=== PATIENT | female | born 1970 | race Caucasian/White ===

== ENCOUNTER 2018-01-23 10:28 | Inpatient (IN) | payer MEDICAID ==
[~2018-01-23] VITALS: Ht 157.5 cm; Wt 85.2 kg
[2018-01-23 11:35] LABS: BASOPHILS % (AUTO) 0.3 % (0-1); EOSINOPHILS # (AUTO) 0.1 X10'3 (0-0.9); EOSINOPHILS % (AUTO) 0.8 % (0-6); HEMATOCRIT 41.3 % (35.0-45.0); HEMOGLOBIN 14.1 g/dl (12.0-16.0); LYMPHOCYTES # (AUTO) 0.8 X10'3 (1.1-4.8); LYMPHOCYTES % (AUTO) 8.7 % (21-51); MEAN CORPUSCULAR HEMOGLOBIN 31.8 PG (27.0-31.0); MEAN CORPUSCULAR HGB CONC 34.2 % (33.0-36.5); MEAN PLATELET VOLUME 8.1 FL (7.4-10.4); MONOCYTES # (AUTO) 0.8 X10'3 (0-0.9); MONOCYTES % (AUTO) 8.1 % (2-12); NEUTROPHILS # (AUTO) 7.8 X10'3 (1.8-7.7); NEUTROPHILS % (AUTO) 82.1 % (42-75); PLATELET COUNT 347 X10'3 (140-440); RED BLOOD COUNT 4.44 X10'6 (4.20-5.60); RED CELL DISTRIBUTION WIDTH 13.9 % (11.5-14.5); WHITE BLOOD COUNT 9.4 X10'3 (4.5-11.0)
[2018-01-23 11:40] LABS: PARTIAL THROMBOPLASTIN TIME 24 SECONDS (22-32); PROTHROMBIN TIME 9.9 SECONDS (9.0-12.0)
[2018-01-23 11:48] LABS: ALANINE AMINOTRANSFERASE 247 U/L (12-78); ALBUMIN 3.3 G/DL (3.4-5.0); ALBUMIN/GLOBULIN RATIO 0.9 (1.1-1.5); ALKALINE PHOSPHATASE 153 IU/L (46-116); ANION GAP 11 (8-16); ASPARTATE AMINO TRANSFERASE 127 U/L (10-37); BILIRUBIN,TOTAL 1.1 MG/DL (0.1-1.0); BLOOD UREA NITROGEN 10 MG/DL (7-18); BUN/CREATININE RATIO 16.4 (6.6-38.0); CALCIUM 8.5 MG/DL (8.5-10.1); CHLORIDE 102 MMOL/L (99-107); CREATININE 0.61 MG/DL (0.40-0.90); GLUCOSE 113 MG/DL (70-104); POTASSIUM 3.9 MMOL/L (3.5-5.1); SODIUM 138 MMOL/L (135-145); TOTAL CARBON DIOXIDE 25.1 MMOL/L (24-32); TOTAL PROTEIN 6.8 G/DL (6.4-8.2); eGFR > 90 ML/MIN
[2018-01-23] MEDS ORDERED: potassium Cl 20 mEq SR tablet PO STA (12:02)
[2018-01-23] MEDS ORDERED: furosemide 10 MG/1 ML 10ml inj IV ONE (12:05)
[2018-01-23] MEDS ORDERED: iohexol 350MG/ML 100ml bottle IV ONE (12:17)
[2018-01-23] MEDS ORDERED: magnesium Cl slow-release 64mg tablet PO PRN (12:45)
[2018-01-23] MEDS ORDERED: potassium Cl 20 mEq SR tablet PO PRN ×2 (12:45)
[2018-01-23] MEDS ORDERED: bisacodyl 10mg suppository rectal RC PRN (12:45)
[2018-01-23] MEDS ORDERED: potassium Cl 40MEQ/NS 500ml 500 ML IV PRN ×2 (12:45)
[2018-01-23] MEDS ORDERED: magnesium 4gm in 100ml NS 100 ML IV PRN (12:45)
[2018-01-23] MEDS ORDERED: magnesium 2GM in 50ml NS 50 ML IV PRN (12:45)
[2018-01-23] MEDS ORDERED: HYDROcodone/acetaminophen 5mg/325mg tablet PO PRN (12:45)
[2018-01-23] MEDS ORDERED: morphine 2 MG/ML inj. syringe IV PRN ×2 (12:45)
[2018-01-23] MEDS ORDERED: mag hydrox/Alum hydrox/simeth 30ml oral suspension PO PRN (12:45)
[2018-01-23] MEDS ORDERED: ondansetron/PF 4mg/2ml inj IV PRN (12:45)
[2018-01-23] MEDS ORDERED: acetaminophen 325mg tablet PO PRN (12:45)
[2018-01-23] MEDS ORDERED: magnesium hydroxide 30ml (MOM) UD suspension PO PRN (12:45)
[2018-01-23 12:47] LABS: ETHANOL < 0.010 GM/DL (0.0-0.010)
[2018-01-23] MEDS ORDERED: metoprolol tartrate 25mg tablet PO SCH (12:50)
[2018-01-23] MEDS ORDERED: LORazepam 2 mg/ml vial IV PRN ×2 (12:50→13:10)
[2018-01-23] MEDS ORDERED: LORazepam 1 MG tablet PO PRN (13:10)
[2018-01-23] MEDS ORDERED: NO HOME MEDS (13:15)
[2018-01-23] MEDS: pantoprazole 40mg Tablet.DR PO SCH (13:44)
[2018-01-23 13:51] LABS: URINE AMPHETAMINE SCREEN NEGATIVE (Neg); URINE BARBITUATE SCREEN NEGATIVE (Neg); URINE BENZODIAZEPINES SCREEN NEGATIVE (Neg); URINE CANNABINOID SCREEN POSITIVE (Neg); URINE COCAINE SCREEN NEGATIVE (Neg); URINE METHADONE SCREEN NEGATIVE (Neg); URINE OPIATE SCREEN NEGATIVE (Neg); URINE PHENCYCLIDINE SCREEN NEGATIVE (Neg)
[2018-01-23 15:00] VITALS: BP 135/99
[2018-01-23] MEDS ORDERED: metoprolol tartrate 25mg tablet PO STA (16:08)
[2018-01-23 19:00] VITALS: BP 145/99
[2018-01-23] MEDS: metoprolol tartrate 50mg tablet PO SCH (19:38)
[2018-01-23] MEDS: furosemide 20 MG/2 ML vial IV SCH (19:38)
[2018-01-23] MEDS: HYDROcodone/acetaminophen 10/325mg tab PO PRN (19:38)
[2018-01-23] MEDS: docusate sod 100mg capsule PO SCH (19:39)
[2018-01-23 23:00] VITALS: BP 134/83
[2018-01-24 03:00] VITALS: BP 125/80
[2018-01-24 05:39] LABS: BASOPHILS % (AUTO) 0.3 % (0-1); EOSINOPHILS # (AUTO) 0.2 X10'3 (0-0.9); EOSINOPHILS % (AUTO) 1.7 % (0-6); HEMATOCRIT 41.2 % (35.0-45.0); HEMOGLOBIN 14.1 g/dl (12.0-16.0); LYMPHOCYTES % (AUTO) 9.5 % (21-51); MEAN CORPUSCULAR HEMOGLOBIN 31.7 PG (27.0-31.0); MEAN CORPUSCULAR HGB CONC 34.1 % (33.0-36.5); MEAN CORPUSCULAR VOLUME 93.1 FL (78-98); MEAN PLATELET VOLUME 8.6 FL (7.4-10.4); MONOCYTES # (AUTO) 0.8 X10'3 (0-0.9); MONOCYTES % (AUTO) 7.3 % (2-12); NEUTROPHILS # (AUTO) 8.6 X10'3 (1.8-7.7); NEUTROPHILS % (AUTO) 81.2 % (42-75); PLATELET COUNT 320 X10'3 (140-440); RED BLOOD COUNT 4.43 X10'6 (4.20-5.60); RED CELL DISTRIBUTION WIDTH 13.2 % (11.5-14.5); WHITE BLOOD COUNT 10.6 X10'3 (4.5-11.0)
[2018-01-24 05:54] LABS: ALANINE AMINOTRANSFERASE 209 U/L (12-78); ALBUMIN 3.1 G/DL (3.4-5.0); ALBUMIN/GLOBULIN RATIO 0.9 (1.1-1.5); ALKALINE PHOSPHATASE 149 IU/L (46-116); ANION GAP 6 (8-16); ASPARTATE AMINO TRANSFERASE 92 U/L (10-37); BILIRUBIN,TOTAL 1.3 MG/DL (0.1-1.0); BLOOD UREA NITROGEN 9 MG/DL (7-18); CALCIUM 8.6 MG/DL (8.5-10.1); CHLORIDE 101 MMOL/L (99-107); CHOL/HDL RATIO 1.8 (0.00-4.99); CHOLESTEROL 198 MG/DL (0-200); CREATININE 0.69 MG/DL (0.40-0.90); GLUCOSE 104 MG/DL (70-104); HDL CHOLESTEROL 109 MG/DL (35-60); LDL CHOLESTEROL 88 MG/DL (50-100); LIPASE 78 U/L (73-393); MAGNESIUM 1.6 MG/DL (1.5-2.4); PHOSPHORUS 3.3 MG/DL (2.3-4.5); SODIUM 138 MMOL/L (135-145); TOTAL CARBON DIOXIDE 30.9 MMOL/L (24-32); TOTAL PROTEIN 6.7 G/DL (6.4-8.2); TRIGLYCERIDES 79 MG/DL (20-135); eGFR > 90 ML/MIN
[2018-01-24 06:52] VITALS: BP 143/86
[2018-01-24] MEDS ORDERED: folic acid inj. 2 MG, thiamine inj. 100 MG, MVI, adult No.4 with vit. K 10 ML in dextro... IV SCH ×4 (08:00)
[2018-01-24] MEDS: K and/or MAG REPLACEMENT MC SCH (08:00)
[2018-01-24] MEDS: metoprolol tartrate 50mg tablet PO SCH ×2 (09:09→20:06)
[2018-01-24] MEDS: pantoprazole 40mg Tablet.DR PO SCH (09:09)
[2018-01-24] MEDS: docusate sod 100mg capsule PO SCH ×2 (09:09→20:06)
[2018-01-24] MEDS: furosemide 20 MG/2 ML vial IV SCH ×2 (09:09→20:06)
[2018-01-24] MEDS: enoxaparin 40mg/0.4ml syringe SUBCUT SCH (09:11)
[2018-01-24 11:00] VITALS: BP 126/71
[2018-01-24 15:00] VITALS: BP 106/76
[2018-01-24] MEDS ORDERED: CAFFEINE CITRATE 60 MG/3 ML injection vial IV PRN (15:40)
[2018-01-24] MEDS ORDERED: metoprolol tartrate 1mg/ml inj IV PRN (15:40)
[2018-01-24] MEDS ORDERED: nitroGLYCERIN 0.4mg SUBLingual tab SL PRN (15:40)
[2018-01-24] MEDS ORDERED: albuterol 2.5 MG/3 ML nebule NEB PRN (15:40)
[2018-01-24] MEDS ORDERED: regadenoson 0.4mg/5ml syringe IV PRN (15:40)
[2018-01-24] MEDS: HYDROcodone/acetaminophen 10/325mg tab PO PRN (17:23)
[2018-01-24] MEDS: levoFLOXACIN-Levaquin 500mg/D5 100 ML IV SCH (17:24)
[2018-01-24 19:00] VITALS: BP 126/87
[2018-01-24 23:00] VITALS: BP 101/48
[2018-01-25] VITALS (15 sets, daily range): BP systolic 117–138; BP diastolic 69–89
[2018-01-25 06:11] LABS: ALANINE AMINOTRANSFERASE 153 U/L (12-78); ALBUMIN 2.6 G/DL (3.4-5.0); ALBUMIN/GLOBULIN RATIO 0.7 (1.1-1.5); ALKALINE PHOSPHATASE 129 IU/L (46-116); ANION GAP 10 (8-16); ASPARTATE AMINO TRANSFERASE 51 U/L (10-37); BILIRUBIN,TOTAL 0.7 MG/DL (0.1-1.0); BLOOD UREA NITROGEN 12 MG/DL (7-18); BUN/CREATININE RATIO 16.2 (6.6-38.0); CALCIUM 8.2 MG/DL (8.5-10.1); CHLORIDE 100 MMOL/L (99-107); CREATININE 0.74 MG/DL (0.40-0.90); GLUCOSE 97 MG/DL (70-104); MAGNESIUM 1.6 MG/DL (1.5-2.4); PHOSPHORUS 3.9 MG/DL (2.3-4.5); POTASSIUM 3.3 MMOL/L (3.5-5.1); SODIUM 139 MMOL/L (135-145); TOTAL CARBON DIOXIDE 29.5 MMOL/L (24-32); TOTAL PROTEIN 6.4 G/DL (6.4-8.2); eGFR 84 ML/MIN
[2018-01-25] MEDS: K and/or MAG REPLACEMENT MC SCH (06:57)
[2018-01-25] MEDS: levoFLOXACIN-Levaquin 500mg/D5 100 ML IV SCH (07:17)
[2018-01-25] MEDS: furosemide 20 MG/2 ML vial IV SCH (07:17)
[2018-01-25] MEDS: pantoprazole 40mg Tablet.DR PO SCH (07:17)
[2018-01-25] MEDS: enoxaparin 40mg/0.4ml syringe SUBCUT SCH (07:18)
[2018-01-25] MEDS: docusate sod 100mg capsule PO SCH (07:18)
[2018-01-25] MEDS: metoprolol tartrate 50mg tablet PO SCH (07:18)
[2018-01-25] MEDS ORDERED: multivitamins, therapeutics tablet PO SCH (08:00)
[2018-01-25] MEDS ORDERED: folic acid 1mg tablet PO SCH (08:00)
[2018-01-25] MEDS ORDERED: thiamine 100mg tablet PO SCH (08:00)
[2018-01-25] MEDS ORDERED: regadenoson 0.4mg/5ml syringe IV ONE (09:54)
[2018-01-25] MEDS ORDERED: CAFFEINE CITRATE 60 MG/3 ML injection vial IV ONE (09:54)
[2018-01-25] MEDS ORDERED: LEVO500T2 PO (13:29)
[2018-01-25] MEDS ORDERED: FOLI1TAB16 PO (13:29)
[2018-01-25] MEDS ORDERED: NITR0.4T51 SL (13:29)
[2018-01-25] MEDS ORDERED: METO50TA16 PO (13:29)
[2018-01-25] MEDS ORDERED: FURO-150 PO (13:29)
[2018-01-25] MEDS ORDERED: POTA20TA19 PO (13:29)
[2018-01-25] MEDS ORDERED: THI100T PO (13:29)
[2018-01-25] MEDS ORDERED: LISI2.5T2 PO (13:35)
[2018-01-25] MEDS ORDERED: ASPI81TA52 PO (13:42)
[2018-01-26] MEDS ORDERED: levoFLOXACIN 250mg tablet PO SCH (11:00)
== END 2018-01-25 16:55 | disposition home or self-care (01) | DRG 199 ==
LOC: ER 10:29 → ED HOLD 12:42 → PCU 3S 15:24
PROVIDERS: ADMIT Internal Medicine; ATTEND Internal Medicine
PROC: B3201ZZ Computerized Tomography (CT Scan) of Thoracic Aorta using Low Osmolar Contrast (ICD-10-PCS; principal; 2018-01-23)
PROC: 4A02XM4 Measurement of Cardiac Total Activity, External Approach (ICD-10-PCS; 2018-01-25)
PROC: 3E033HZ Introduction of Radioactive Substance into Peripheral Vein, Percutaneous Approach (ICD-10-PCS; 2018-01-25)
DX: I16.0 Hypertensive urgency (principal); I50.21 Acute systolic (congestive) heart failure; E27.8 Other specified disorders of adrenal gland; I42.6 Alcoholic cardiomyopathy; K29.20 Alcoholic gastritis without bleeding; I11.0 Hypertensive heart disease with heart failure; F10.20 Alcohol dependence, uncomplicated; F12.90 Cannabis use, unspecified, uncomplicated; R59.9 Enlarged lymph nodes, unspecified; J20.9 Acute bronchitis, unspecified; F41.0 Panic disorder [episodic paroxysmal anxiety]; J45.909 Unspecified asthma, uncomplicated; I34.0 Nonrheumatic mitral (valve) insufficiency; E87.6 Hypokalemia; T50.1X5A Adverse effect of loop [high-ceiling] diuretics, initial encounter; Z90.49 Acquired absence of other specified parts of digestive tract; Z88.8 Allergy status to other drugs, medicaments and biological substances; Z79.899 Other long term (current) drug therapy; Z87.891 Personal history of nicotine dependence; Y92.238 Other place in hospital as the place of occurrence of the external cause; Z71.41 Alcohol abuse counseling and surveillance of alcoholic
CPT/HCPCS: 36415; 71045; 71275; 78452; 80053; 80061; 80305; 80320; 82948; 83690; 83735; 83880; 84100; 84439; 84443; 84484; 85025; 85610; 85730; 87070; 93005; 93017; 93306; 99285; A9500; J1650; J1940; J1956; J2270; J3411; J3490; J7030; J7060; Q9967

== ENCOUNTER 2018-03-21 07:39 | Emergency (ER) | payer MEDICAID ==
[~2018-03-21] VITALS: Ht 157.5 cm; Wt 88.3 kg
[~2018-03-21 07:39] MED LIST: FOLI1TAB16 PO; LISI2.5T2 PO; METO50TA16 PO; NITR0.4T51 SL; THI100T PO
[2018-03-21 07:43] VITALS: BP 125/75
[2018-03-21] MEDS ORDERED: ipratropium/albuterol 3ml nebule NEB ONE (07:55)
[2018-03-21 08:16] LABS: BASOPHILS % (AUTO) 0.8 % (0-1); EOSINOPHILS # (AUTO) 0.1 X10'3 (0-0.9); EOSINOPHILS % (AUTO) 1.3 % (0-6); HEMATOCRIT 43.6 % (35.0-45.0); HEMOGLOBIN 14.7 g/dl (12.0-16.0); LYMPHOCYTES # (AUTO) 2.3 X10'3 (1.1-4.8); LYMPHOCYTES % (AUTO) 40.2 % (21-51); MEAN CORPUSCULAR HEMOGLOBIN 30.9 PG (27.0-31.0); MEAN CORPUSCULAR HGB CONC 33.7 % (33.0-36.5); MEAN CORPUSCULAR VOLUME 91.6 FL (78-98); MEAN PLATELET VOLUME 7.8 FL (7.4-10.4); MONOCYTES # (AUTO) 0.4 X10'3 (0-0.9); MONOCYTES % (AUTO) 7.6 % (2-12); NEUTROPHILS # (AUTO) 2.9 X10'3 (1.8-7.7); NEUTROPHILS % (AUTO) 50.1 % (42-75); PLATELET COUNT 400 X10'3 (140-440); RED BLOOD COUNT 4.76 X10'6 (4.20-5.60); RED CELL DISTRIBUTION WIDTH 13.3 % (11.5-14.5); WHITE BLOOD COUNT 5.8 X10'3 (4.5-11.0)
[2018-03-21 08:27] LABS: ALANINE AMINOTRANSFERASE 35 U/L (12-78); ALBUMIN 3.6 G/DL (3.4-5.0); ALBUMIN/GLOBULIN RATIO 0.9 (1.1-1.5); ALKALINE PHOSPHATASE 76 IU/L (46-116); ANION GAP 6 (8-16); ASPARTATE AMINO TRANSFERASE 30 U/L (10-37); BILIRUBIN,TOTAL 0.3 MG/DL (0.1-1.0); BLOOD UREA NITROGEN 14 MG/DL (7-18); BUN/CREATININE RATIO 21.2 (6.6-38.0); CALCIUM 8.8 MG/DL (8.5-10.1); CHLORIDE 105 MMOL/L (99-107); CREATININE 0.66 MG/DL (0.40-0.90); GLUCOSE 98 MG/DL (70-104); POTASSIUM 4.2 MMOL/L (3.5-5.1); SODIUM 143 MMOL/L (135-145); TOTAL CARBON DIOXIDE 32.4 MMOL/L (24-32); TOTAL PROTEIN 7.5 G/DL (6.4-8.2); eGFR > 90 ML/MIN
[2018-03-21] MEDS ORDERED: predniSONE 20 mg tablet PO ONE (08:45)
[2018-03-21] MEDS ORDERED: PRED20TA PO (08:52)
[2018-03-21] MEDS ORDERED: ALBU18HF2 INH (08:52)
== END 2018-03-21 09:27 | disposition home or self-care (01) ==
LOC: ER 07:40
DX: J20.9 Acute bronchitis, unspecified (principal); I50.9 Heart failure, unspecified; F12.90 Cannabis use, unspecified, uncomplicated; Z90.49 Acquired absence of other specified parts of digestive tract; Z98.890 Other specified postprocedural states; Z88.8 Allergy status to other drugs, medicaments and biological substances; Z79.899 Other long term (current) drug therapy; Z87.81 Personal history of (healed) traumatic fracture
CPT/HCPCS: 36415; 71046; 80053; 83880; 85025; 93005; 94640; 94760; 99284; J7512

== ENCOUNTER 2018-05-05 10:28 | Emergency (ER) | payer MEDICAID ==
[~2018-05-05] VITALS: Ht 157.5 cm; Wt 87.3 kg
[~2018-05-05 10:28] MED LIST changes: +ALBU18HF2 INH
[2018-05-05 11:05] LABS: BASOPHILS % (AUTO) 0.6 % (0-1); EOSINOPHILS # (AUTO) 0.1 X10'3 (0-0.9); EOSINOPHILS % (AUTO) 0.7 % (0-6); HEMATOCRIT 46.7 % (35.0-45.0); HEMOGLOBIN 15.2 g/dl (12.0-16.0); LYMPHOCYTES # (AUTO) 1.5 X10'3 (1.1-4.8); LYMPHOCYTES % (AUTO) 19.3 % (21-51); MEAN CORPUSCULAR HEMOGLOBIN 30.3 PG (27.0-31.0); MEAN CORPUSCULAR HGB CONC 32.6 % (33.0-36.5); MEAN CORPUSCULAR VOLUME 92.8 FL (78-98); MEAN PLATELET VOLUME 7.9 FL (7.4-10.4); MONOCYTES # (AUTO) 0.6 X10'3 (0-0.9); MONOCYTES % (AUTO) 8.2 % (2-12); NEUTROPHILS # (AUTO) 5.7 X10'3 (1.8-7.7); NEUTROPHILS % (AUTO) 71.2 % (42-75); PLATELET COUNT 429 X10'3 (140-440); RED BLOOD COUNT 5.03 X10'6 (4.20-5.60); RED CELL DISTRIBUTION WIDTH 13.3 % (11.5-14.5); WHITE BLOOD COUNT 7.9 X10'3 (4.5-11.0)
[2018-05-05] MEDS ORDERED: predniSONE 20 mg tablet PO ONE (11:10)
[2018-05-05] MEDS ORDERED: ipratropium/albuterol 3ml nebule NEB ONE (11:10)
[2018-05-05 11:23] LABS: ALANINE AMINOTRANSFERASE 38 U/L (12-78); ALBUMIN 3.6 G/DL (3.4-5.0); ALBUMIN/GLOBULIN RATIO 0.9 (1.1-1.5); ALKALINE PHOSPHATASE 83 IU/L (46-116); ANION GAP 10 (8-16); ASPARTATE AMINO TRANSFERASE 32 U/L (10-37); BILIRUBIN,TOTAL 0.3 MG/DL (0.1-1.0); BLOOD UREA NITROGEN 13 MG/DL (7-18); BUN/CREATININE RATIO 17.1 (6.6-38.0); CALCIUM 8.6 MG/DL (8.5-10.1); CHLORIDE 105 MMOL/L (99-107); CREATININE 0.76 MG/DL (0.40-0.90); GLUCOSE 124 MG/DL (70-104); SODIUM 145 MMOL/L (135-145); TOTAL CARBON DIOXIDE 29.8 MMOL/L (24-32); TOTAL PROTEIN 7.7 G/DL (6.4-8.2); eGFR 81 ML/MIN
[2018-05-05 11:33] LABS: PARTIAL THROMBOPLASTIN TIME 25 SECONDS (22-32); PROTHROMBIN TIME 9.9 SECONDS (9.0-12.0)
[2018-05-05] MEDS ORDERED: PRED20TA PO (12:06)
[2018-05-05] MEDS ORDERED: AZIT-72 PO (12:06)
[2018-05-05] MEDS ORDERED: ALBU8.5H8 IH (12:06)
[2018-05-05] MEDS ORDERED: ASPI81TA52 PO (12:12)
[2018-05-05] MEDS ORDERED: POTA10CA44 PO (12:12)
[2018-05-05] MEDS ORDERED: FURO-150 PO (12:12)
[2018-05-05 12:58] VITALS: BP 122/76
== END 2018-05-05 12:59 | disposition home or self-care (01) ==
LOC: ER 10:28
DX: J45.909 Unspecified asthma, uncomplicated (principal); I50.9 Heart failure, unspecified; F12.90 Cannabis use, unspecified, uncomplicated; Z90.49 Acquired absence of other specified parts of digestive tract; Z88.8 Allergy status to other drugs, medicaments and biological substances; Z79.82 Long term (current) use of aspirin; Z79.899 Other long term (current) drug therapy
CPT/HCPCS: 36415; 71045; 80053; 83880; 84484; 85025; 85610; 85730; 93005; 94640; 94760; 99284; J7512

== ENCOUNTER 2018-05-09 14:54 | Emergency (ER) | payer MEDICAID, OTHER ==
[~2018-05-09] VITALS: Ht 157.5 cm; Wt 88.5 kg
[~2018-05-09 14:54] MED LIST changes: +ALBU8.5H8 IH; +ASPI81TA52 PO; +AZIT-72 PO; -FOLI1TAB16 PO; +FURO-150 PO; +POTA10CA44 PO; -THI100T PO
[2018-05-09 15:34] LABS: BASOPHILS % (AUTO) 0.2 % (0-1); EOSINOPHILS % (AUTO) 0 % (0-6); HEMATOCRIT 43.2 % (35.0-45.0); HEMOGLOBIN 14.5 g/dl (12.0-16.0); LYMPHOCYTES % (AUTO) 10.7 % (21-51); MEAN CORPUSCULAR HEMOGLOBIN 30.8 PG (27.0-31.0); MEAN CORPUSCULAR HGB CONC 33.5 % (33.0-36.5); MEAN CORPUSCULAR VOLUME 91.8 FL (78-98); MEAN PLATELET VOLUME 8.1 FL (7.4-10.4); MONOCYTES # (AUTO) 0.3 X10'3 (0-0.9); MONOCYTES % (AUTO) 3.7 % (2-12); NEUTROPHILS # (AUTO) 7.6 X10'3 (1.8-7.7); NEUTROPHILS % (AUTO) 85.4 % (42-75); PLATELET COUNT 369 X10'3 (140-440); RED CELL DISTRIBUTION WIDTH 13.8 % (11.5-14.5); WHITE BLOOD COUNT 8.9 X10'3 (4.5-11.0)
[2018-05-09 15:48] LABS: ALANINE AMINOTRANSFERASE 45 U/L (12-78); ALBUMIN 3.6 G/DL (3.4-5.0); ALKALINE PHOSPHATASE 78 IU/L (46-116); ANION GAP 14 (8-16); ASPARTATE AMINO TRANSFERASE 35 U/L (10-37); BILIRUBIN,TOTAL 0.7 MG/DL (0.1-1.0); BLOOD UREA NITROGEN 21 MG/DL (7-18); BUN/CREATININE RATIO 23.1 (6.6-38.0); CALCIUM 9.1 MG/DL (8.5-10.1); CHLORIDE 99 MMOL/L (99-107); CREATININE 0.91 MG/DL (0.40-0.90); GLUCOSE 193 MG/DL (70-104); POTASSIUM 3.8 MMOL/L (3.5-5.1); SODIUM 139 MMOL/L (135-145); TOTAL CARBON DIOXIDE 26.1 MMOL/L (24-32); TOTAL PROTEIN 7.3 G/DL (6.4-8.2); eGFR 66 ML/MIN
[2018-05-09 16:06] LABS: PARTIAL THROMBOPLASTIN TIME 24 SECONDS (22-32); PROTHROMBIN TIME 10.2 SECONDS (9.0-12.0)
[2018-05-09] MEDS ORDERED: LORazepam 2 mg/ml vial IV ONE (17:00)
[2018-05-09] MEDS ORDERED: LORA0.5T PO (17:31)
[2018-05-09] MEDS ORDERED: BENZ-16 PO (17:31)
[2018-05-09 17:47] VITALS: BP 111/67
== END 2018-05-09 17:49 | disposition home or self-care (01) ==
LOC: ER 14:55
DX: F41.9 Anxiety disorder, unspecified (principal); R05 Cough; R20.2 Paresthesia of skin; I50.9 Heart failure, unspecified; J45.909 Unspecified asthma, uncomplicated; Z87.891 Personal history of nicotine dependence; Z90.49 Acquired absence of other specified parts of digestive tract; Z98.890 Other specified postprocedural states; Z88.8 Allergy status to other drugs, medicaments and biological substances; Z79.82 Long term (current) use of aspirin; Z79.899 Other long term (current) drug therapy
CPT/HCPCS: 36415; 71045; 80053; 84484; 85025; 85610; 85730; 93005; 96374; 99284; J2060

== ENCOUNTER 2018-07-13 06:14 | Emergency (ER) | payer MEDICAID, OTHER ==
[~2018-07-13] VITALS: Ht 157.5 cm; Wt 86.4 kg
[~2018-07-13 06:14] MED LIST changes: -AZIT-72 PO
[2018-07-13] MEDS ORDERED: LIDOcaine 1% 30ml preserv. free vial NEB ONE (06:35)
[2018-07-13] MEDS ORDERED: AZIT250T PO (06:37)
[2018-07-13] MEDS ORDERED: GUAI120L55 PO (06:37)
[2018-07-13] MEDS ORDERED: acetaminophen 325mg tablet PO STA (06:39)
[2018-07-13] MEDS ORDERED: LIDOCAINE 4% (40MG/ML) topical solution 50ml **BRONCH ONLY MM ONE (06:40)
[2018-07-13] MEDS ORDERED: normal saline 1000ML IV soln IV ONE (06:40)
--- NOTE | 2018-07-13 06:50 | NUR ---
Spoke with Dr. Holliday regarding patient meeting sepsis criteria, no further order for additional IV fluids at this time per MD.
[2018-07-13] MEDS ORDERED: LIDOCAINE 4% (40MG/ML) topical solution 50ml **BRONCH ONLY ONE (07:09)
[2018-07-13 07:12] LABS: CLARITY,URINE SLIGHTLY CLOUDY (Clear); COLOR,URINE YELLOW (Yellow); GLUCOSE, URINE NEGATIVE (Neg); KETONES,URINE NEGATIVE (Neg); LEUKOCYTE ESTERASE ,URINE NEGATIVE (Neg); NITRITES, URINE NEGATIVE (Neg); OCCULT BLOOD,URINE SMALL (Neg); PH,URINE 5.5 (4.8-8.0); PROTEIN,URINE NEGATIVE (Neg); UROBILINOGEN,URINE 0.2 E.U/dL (0.2-1.0)
[2018-07-13 07:12] LABS: BASOPHILS % (AUTO) 0.3 % (0-1); EOSINOPHILS % (AUTO) 0.2 % (0-6); LYMPHOCYTES # (AUTO) 0.5 X10'3 (1.1-4.8); LYMPHOCYTES % (AUTO) 5.8 % (21-51); MEAN CORPUSCULAR HEMOGLOBIN 31.4 PG (27.0-31.0); MEAN CORPUSCULAR HGB CONC 34.1 g/dL (33.0-36.5); MONOCYTES # (AUTO) 1.1 X10'3 (0-0.9); MONOCYTES % (AUTO) 11.5 % (2-12); NEUTROPHILS # (AUTO) 7.8 X10'3 (1.8-7.7); NEUTROPHILS % (AUTO) 82.2 % (42-75); PLATELET COUNT 287 X10'3 (140-440); RED BLOOD COUNT 4.45 X10'6 (4.20-5.60); RED CELL DISTRIBUTION WIDTH 12.7 % (11.5-14.5); WHITE BLOOD COUNT 9.5 X10'3 (4.5-11.0)
[2018-07-13 07:17] LABS: SQUAMOUS EPITHELIAL CELL,UR MANY /LPF (FEW); UA COLLECTION TYPE NON-SPECIFIED
[2018-07-13 07:18] LABS: BACTERIA,URINE 1+ /HPF (Neg); HYALINE CASTS 0-3 /LPF (NEGATIVE); MUCUS STRANDS FEW /LPF (Neg)
[2018-07-13 07:19] LABS: RBC,URINE 0-2 /HPF (0-2); WBC,URINE 0-4 /HPF (0-4)
[2018-07-13 07:25] LABS: ALANINE AMINOTRANSFERASE 30 U/L (12-78); ALBUMIN 3.6 G/DL (3.4-5.0); ALBUMIN/GLOBULIN RATIO 0.9 (1.1-1.5); ALKALINE PHOSPHATASE 102 IU/L (46-116); ANION GAP 11 (8-16); ASPARTATE AMINO TRANSFERASE 32 U/L (10-37); BILIRUBIN,TOTAL 0.4 MG/DL (0.1-1.0); BLOOD UREA NITROGEN 13 MG/DL (7-18); BUN/CREATININE RATIO 18.6 (6.6-38.0); CALCIUM 9.1 MG/DL (8.5-10.1); CHLORIDE 101 MMOL/L (99-107); GLUCOSE 111 MG/DL (70-104); POTASSIUM 3.9 MMOL/L (3.5-5.1); SODIUM 137 MMOL/L (135-145); TOTAL PROTEIN 7.5 G/DL (6.4-8.2); eGFR 89 ML/MIN
[2018-07-13 08:26] VITALS: BP 121/73
== END 2018-07-13 08:15 | disposition home or self-care (01) ==
LOC: ER 06:15
DX: J20.9 Acute bronchitis, unspecified (principal); R19.7 Diarrhea, unspecified; R07.9 Chest pain, unspecified; I50.9 Heart failure, unspecified; J45.909 Unspecified asthma, uncomplicated; F12.90 Cannabis use, unspecified, uncomplicated; Z90.49 Acquired absence of other specified parts of digestive tract; Z88.8 Allergy status to other drugs, medicaments and biological substances; Z79.82 Long term (current) use of aspirin
CPT/HCPCS: 36415; 71045; 80053; 81001; 84145; 85025; 93005; 94640; 94760; 96360; 99284; J7030

== ENCOUNTER 2019-07-31 10:57 | Day surgery (SDC) | payer MEDICAID ==
[~2019-07-31] VITALS: Ht 157.5 cm; Wt 94.8 kg
[~2019-07-31 10:57] MED LIST changes: -ALBU8.5H8 IH; +APIX5TAB3 PO; -ASPI81TA52 PO; +BUSP10TA10 PO; +BUSP15TA7 PO; +DIPH25CA83 PO; +HYDR-3686 PO; +LOSA25TA96 PO
[2019-07-31] MEDS ORDERED: ceFAZolin 2gm in dextrose, iso 50 ML IV ONE (11:20)
[2019-07-31] MEDS ORDERED: normal saline 1000ml 1,000 ML IV SCH (11:20)
[2019-07-31 11:25] VITALS: BP 158/89
[2019-07-31] MEDS ORDERED: METO-411 PO (11:38)
[2019-07-31] MEDS ORDERED: MAGN500C16 PO (11:38)
[2019-07-31] MEDS ORDERED: cefazolin/dext.iso 2gm/100ml 100 ML IV ONE (11:40)
[2019-07-31] MEDS ORDERED: cefazolin/dext.iso 2gm/50ml 50 ML IV ONE (12:20)
[2019-07-31] MEDS ORDERED: midazolam 2 mg/2 ml injection ONE (13:22)
[2019-07-31] MEDS ORDERED: fentaNYL/PF 50MCG/1 ML 2ML syringe ONE (13:22)
[2019-07-31] MEDS ORDERED: LIDOcaine 1% W/epiNEPHrine 1:100,000 20ml vial ONE (13:23)
[2019-07-31] MEDS ORDERED: ceFAZolin 1000mg inj ONE ×2 (13:23→13:50)
[2019-07-31 14:32] VITALS: BP 112/55
[2019-07-31 14:45] VITALS: BP 116/65
[2019-07-31 15:00] VITALS: BP 112/78
[2019-07-31 15:15] VITALS: BP 117/69
[2019-07-31 15:31] VITALS: BP 108/66
== END 2019-07-31 16:05 | disposition home or self-care (01) ==
LOC: SSTAY O 10:57
PROVIDERS: ATTEND Internal Medicine Interventional Cardiology
DX: T82.191A Other mechanical complication of cardiac pulse generator (battery), initial encounter (principal); I11.0 Hypertensive heart disease with heart failure; I50.22 Chronic systolic (congestive) heart failure; J45.909 Unspecified asthma, uncomplicated; I34.0 Nonrheumatic mitral (valve) insufficiency; I48.0 Paroxysmal atrial fibrillation; Z72.89 Other problems related to lifestyle; Z88.8 Allergy status to other drugs, medicaments and biological substances; Z79.899 Other long term (current) drug therapy; Y83.8 Other surgical procedures as the cause of abnormal reaction of the patient, or of later complication, without mention of misadventure at the time of the procedure; Y92.89 Other specified places as the place of occurrence of the external cause
CPT/HCPCS: 33263; 93005; 99152; C1721; J0690; J2250; J3010; 33228; 99153; A4620; C1895

== ENCOUNTER 2019-09-10 10:22 | Emergency (ER) | payer MEDICAID ==
[~2019-09-10] VITALS: Ht 157.5 cm; Wt 100.0 kg
[~2019-09-10 10:22] MED LIST changes: -ALBU18HF2 INH; -LISI2.5T2 PO; +MAGN500C16 PO; +METO-411 PO; -METO50TA16 PO; -NITR0.4T51 SL
[2019-09-10] MEDS ORDERED: metoprolol tartrate 50mg tablet PO ONE (10:40)
[2019-09-10 10:47] LABS: BASOPHILS # (AUTO) 0.1 X10'3 (0-0.2); BASOPHILS % (AUTO) 0.7 % (0-1); EOSINOPHILS % (AUTO) 0.3 % (0-6); HEMOGLOBIN 14.6 g/dl (12.0-16.0); LYMPHOCYTES # (AUTO) 1.6 X10'3 (1.1-4.8); LYMPHOCYTES % (AUTO) 20.9 % (21-51); MEAN CORPUSCULAR HEMOGLOBIN 31.9 PG (27.0-31.0); MEAN CORPUSCULAR HGB CONC 33.9 g/dL (33.0-36.5); MEAN PLATELET VOLUME 7.3 FL (7.4-10.4); MONOCYTES # (AUTO) 0.6 X10'3 (0-0.9); MONOCYTES % (AUTO) 7.6 % (2-12); NEUTROPHILS # (AUTO) 5.3 X10'3 (1.8-7.7); NEUTROPHILS % (AUTO) 70.5 % (42-75); PLATELET COUNT 400 X10'3 (140-440); RED BLOOD COUNT 4.57 X10'6 (4.20-5.60); RED CELL DISTRIBUTION WIDTH 13.3 % (11.5-14.5); WHITE BLOOD COUNT 7.6 X10'3 (4.5-11.0)
--- NOTE | 2019-09-10 10:54 | NUR ---
Orlin from . [facility] called and states she had afib with RVR at around 190's. [id number] shock corrected it.
[2019-09-10 11:12] LABS: ALANINE AMINOTRANSFERASE 44 U/L (12-78); ALBUMIN 3.5 G/DL (3.4-5.0); ALBUMIN/GLOBULIN RATIO 0.9 (1.1-1.5); ALKALINE PHOSPHATASE 109 IU/L (46-116); ANION GAP 11 (8-16); ASPARTATE AMINO TRANSFERASE 56 U/L (10-37); BILIRUBIN,TOTAL 0.7 MG/DL (0.1-1.0); BLOOD UREA NITROGEN 17 MG/DL (7-18); BUN/CREATININE RATIO 21.3 (6.6-38.0); CALCIUM 8.7 MG/DL (8.5-10.1); CHLORIDE 105 MMOL/L (99-107); GLUCOSE 85 MG/DL (70-104); MAGNESIUM 1.9 MG/DL (1.5-2.4); POTASSIUM 3.9 MMOL/L (3.5-5.1); SODIUM 142 MMOL/L (135-145); TOTAL CARBON DIOXIDE 26.4 MMOL/L (24-32); TOTAL PROTEIN 7.4 G/DL (6.4-8.2); eGFR 76 ML/MIN
[2019-09-10] MEDS ORDERED: METO200T49 PO (11:37)
[2019-09-10 11:43] VITALS: BP 141/88
== END 2019-09-10 12:15 | disposition home or self-care (01) ==
LOC: ER 10:22
DX: I48.91 Unspecified atrial fibrillation (principal); D65 Disseminated intravascular coagulation [defibrination syndrome]; I25.10 Atherosclerotic heart disease of native coronary artery without angina pectoris; I50.9 Heart failure, unspecified; I25.2 Old myocardial infarction; J45.909 Unspecified asthma, uncomplicated; F41.9 Anxiety disorder, unspecified; F12.90 Cannabis use, unspecified, uncomplicated; Z98.61 Coronary angioplasty status; Z90.49 Acquired absence of other specified parts of digestive tract; Z95.0 Presence of cardiac pacemaker; Z88.8 Allergy status to other drugs, medicaments and biological substances; Z79.01 Long term (current) use of anticoagulants; Z79.899 Other long term (current) drug therapy
CPT/HCPCS: 36415; 71045; 80053; 83735; 83880; 84484; 85025; 93005; 99285

== ENCOUNTER 2020-04-12 06:44 | Emergency (ER) | payer BC, MEDICAID ==
[~2020-04-12] VITALS: Ht 157.5 cm; Wt 100.0 kg
[~2020-04-12 06:44] MED LIST changes: +METO200T49 PO
[2020-04-12 06:51] VITALS: BP 149/95
[2020-04-12] MEDS ORDERED: predniSONE 20 mg tablet PO ONE (07:05)
[2020-04-12] MEDS ORDERED: ketorolac trometh. 30mg/ml inj. IM ONE (07:05)
[2020-04-12] MEDS ORDERED: PRED20TA PO (07:25)
== END 2020-04-12 07:47 | disposition home or self-care (01) ==
LOC: ER 06:45
DX: M10.9 Gout, unspecified (principal); M79.675 Pain in left toe(s); I25.10 Atherosclerotic heart disease of native coronary artery without angina pectoris; I50.9 Heart failure, unspecified; I25.2 Old myocardial infarction; J45.909 Unspecified asthma, uncomplicated; F41.9 Anxiety disorder, unspecified; F17.200 Nicotine dependence, unspecified, uncomplicated; F12.90 Cannabis use, unspecified, uncomplicated; Z90.49 Acquired absence of other specified parts of digestive tract; Z95.0 Presence of cardiac pacemaker; Z98.890 Other specified postprocedural states; Z88.8 Allergy status to other drugs, medicaments and biological substances; Z79.899 Other long term (current) drug therapy
CPT/HCPCS: 73630; 96372; 99283; J1885; J7512